=== PATIENT | male | born 1950 | race Caucasian/White ===

== ENCOUNTER 2019-06-17 07:08 | Emergency (ER) | payer OTHER ==
[~2019-06-17] VITALS: Ht 165.1 cm; Wt 66.7 kg
[2019-06-17 07:23] VITALS: Ht 165.1 cm; Wt 66.7 kg
[2019-06-17 10:18] VITALS: BP 130/75
== END 2019-06-17 10:18 | disposition home or self-care (01) ==
LOC: ED 07:08
DX: J98.01 Acute bronchospasm (principal); R07.89 Other chest pain; I10 Essential (primary) hypertension; E78.00 Pure hypercholesterolemia, unspecified
CPT/HCPCS: 87804; J2930; J7613; J7644